=== PATIENT | female | born 1985 | race Caucasian/White ===

== ENCOUNTER 2017-05-11 23:08 | Emergency (ER) | payer MEDICARE, MEDICAID ==
[~2017-05-11] VITALS: Ht 160 cm; Wt 54.4 kg
[2017-05-11] MEDS ORDERED: LORazepam 0.5 MG TAB PO ONE (23:45)
[2017-05-12 01:44] LABS: Urine Pregnacy Test Negative (Negative)
[2017-05-12 01:54] LABS: Alcohol, Urine < 3.0 mg/dL (0-5); Amphetamine Screen, Urine NEGATIVE (NEGATIVE); Barbiturate Scree,Urine NEGATIVE (NEGATIVE); Benzodiazephine Screen, Urine NEGATIVE (NEGATIVE); Cannabinoid Screen, Urine NEGATIVE (NEGATIVE); Cocaine Screen, Urine NEGATIVE (NEGATIVE); Opiate Scree,Urine NEGATIVE (NEGATIVE); Phencyclidine Screen, Urine NEGATIVE (NEGATIVE)
[2017-05-12 05:02] VITALS: BP 132/76
== END 2017-05-12 07:25 | disposition home or self-care (01) ==
LOC: EDBD 23:08 → ER 23:14
DX: F41.9 Anxiety disorder, unspecified (principal); R06.02 Shortness of breath; J45.909 Unspecified asthma, uncomplicated; F17.210 Nicotine dependence, cigarettes, uncomplicated; Z88.1 Allergy status to other antibiotic agents; Z88.8 Allergy status to other drugs, medicaments and biological substances
CPT/HCPCS: 80307; 81025; 82962

== ENCOUNTER 2017-07-11 14:18 | Observation (INO) | payer MEDICARE, MEDICAID ==
[~2017-07-11] VITALS: Ht 165.1 cm; Wt 63.5 kg
[2017-07-11 14:44] LABS: Urine Pregnacy Test Negative (Negative)
[2017-07-11 14:54] LABS: Urine Bacteria FEW /hpf (None Seen); Urine Blood Negative /uL (Negative); Urine Specific Gravity 1.004 (1.001-1.035); Urine WBC <1 /hpf (0 - 5)
[2017-07-11 15:27] LABS: Alcohol, Urine < 3.0 mg/dL (0-5); Amphetamine Screen, Urine NEGATIVE (NEGATIVE); Barbiturate Scree,Urine NEGATIVE (NEGATIVE); Benzodiazephine Screen, Urine NEGATIVE (NEGATIVE); Cannabinoid Screen, Urine NEGATIVE (NEGATIVE); Cocaine Screen, Urine NEGATIVE (NEGATIVE); Opiate Scree,Urine NEGATIVE (NEGATIVE); Phencyclidine Screen, Urine NEGATIVE (NEGATIVE)
[2017-07-11 19:50] VITALS: BP 107/59
[2017-07-11] MEDS ORDERED: ASPirin 81 mg TAB PO ONE (20:00)
[2017-07-11] MEDS ORDERED: LORazepam 0.5 MG TAB PO ONE (20:00)
[2017-07-11 20:28] LABS: Basophils # (auto) 0.1 uL; Basophils % (auto) 0.9 % (0.0-2.0); Eosinophils # (auto) 0.1 uL; Eosinophils % (auto) 1.1 % (0.0-7.0); Hematocrit 40.5 % (36.0-46.0); Hemoglobin 13.4 g/dL (12.2-16.2); Lymphocytes # (auto) 2.8 uL; Lymphocytes % (auto) 34.4 % (10.0-50.0); Mean Corpuscular Hemoglobin 32.2 pg (28.0-32.0); Mean Corpuscular Hgb Conc. 33.1 g/dL (32.0-36.0); Mean Corpuscular Volume 97.3 fL (80.0-100.0); Monocytes # (auto) 0.5 uL; Monocytes % (auto) 5.8 % (0.0-12.0); Neutrophils # (auto) 4.7 uL; Neutrophils % (auto) 57.8 % (37.0-80.0); Nucleated Red Blood Cells % 0.1 %; Platelet Count (auto) 334 10^3/uL (140-450); Red Blood Cells 4.16 10^6/uL (4.0-5.20); Red Cell Distribution Width 13.8 % (11.8-14.3); White Blood Cell 8.2 10^3/uL (4.4-10.8)
[2017-07-11 20:48] LABS: Albumin 4.1 g/dL (3.4-5.0); BUN/Creatinine Ratio 14.7; Calcium 8.3 mg/dL (8.5-10.1); Magnesium 2.1 mg/dL (1.6-2.6); Potassium 3.8 mmol/L (3.5-5.1)
[2017-07-11 20:51] LABS: Bilirubin, Total 0.2 mg/dL (0.2-1.0); Total Protein 7.3 g/dL (6.4-8.2)
== END 2017-07-11 21:35 | disposition home or self-care (01) | DRG 313 ==
LOC: EDUNIT# 14:18 → ER 14:18 → EDBD 14:18 → OVERFLOW 19:14 → ER 21:35
PROVIDERS: ADMIT Emergency Medicine; ATTEND Emergency Medicine
DX: R07.89 Other chest pain (principal); E03.9 Hypothyroidism, unspecified; E78.5 Hyperlipidemia, unspecified; J45.909 Unspecified asthma, uncomplicated; F41.9 Anxiety disorder, unspecified; F17.210 Nicotine dependence, cigarettes, uncomplicated; Z88.1 Allergy status to other antibiotic agents
CPT/HCPCS: 36415; 71046; 80053; 80307; 81001; 81025; 83735; 83880; 84443; 84484; 85025; 85379; 85610; 85730; 93005; 99285; G0378

== ENCOUNTER 2017-11-01 23:13 | Emergency (ER) | payer MEDICAID, MEDICARE ==
[~2017-11-01] VITALS: Ht 165.1 cm; Wt 54.4 kg
[2017-11-01] MEDS ORDERED: LORazepam 0.5 MG TAB ONE (23:41)
[2017-11-02] MEDS ORDERED: LORazepam 0.5 MG TAB PO ONE ×2 (00:15→10:00)
[2017-11-02 00:38] LABS: Basophils # (auto) 0.1 uL; Basophils % (auto) 0.5 % (0.0-2.0); Eosinophils # (auto) 0.1 uL; Eosinophils % (auto) 0.6 % (0.0-7.0); Hematocrit 40.9 % (36.0-46.0); Hemoglobin 13.7 g/dL (12.2-16.2); Lymphocytes # (auto) 2.8 uL; Mean Corpuscular Hemoglobin 30.8 pg (28.0-32.0); Mean Corpuscular Hgb Conc. 33.5 g/dL (32.0-36.0); Mean Corpuscular Volume 92.1 fL (80.0-100.0); Monocytes # (auto) 0.6 uL; Monocytes % (auto) 6.3 % (0.0-12.0); Neutrophils # (auto) 6.2 uL; Neutrophils % (auto) 63.6 % (37.0-80.0); Platelet Count (auto) 385 10^3/uL (140-450); Red Blood Cells 4.44 10^6/uL (4.0-5.20); Red Cell Distribution Width 14.3 % (11.8-14.3); White Blood Cell 9.8 10^3/uL (4.4-10.8)
[2017-11-02 01:02] LABS: Albumin 3.9 g/dL (3.4-5.0); Bilirubin, Total 0.8 mg/dL (0.2-1.0); Calcium 8.4 mg/dL (8.5-10.1); Potassium 3.5 mmol/L (3.5-5.1); Total Protein 7.4 g/dL (6.4-8.2)
[2017-11-02 04:10] LABS: Urine Bacteria NONE SEEN /hpf (None Seen); Urine Blood Negative /uL (Negative); Urine Mucus FEW (None Seen); Urine Specific Gravity 1.042 (1.001-1.035); Urine WBC 4 /hpf (0 - 5)
[2017-11-02 04:11] LABS: Urine Pregnacy Test Negative (Negative)
[2017-11-02 04:28] LABS: Alcohol, Urine < 3.0 mg/dL (0-5); Amphetamine Screen, Urine POSITIVE (NEGATIVE); Barbiturate Scree,Urine NEGATIVE (NEGATIVE); Benzodiazephine Screen, Urine NEGATIVE (NEGATIVE); Cannabinoid Screen, Urine NEGATIVE (NEGATIVE); Cocaine Screen, Urine NEGATIVE (NEGATIVE); Opiate Scree,Urine NEGATIVE (NEGATIVE); Phencyclidine Screen, Urine NEGATIVE (NEGATIVE)
[2017-11-02 09:30] VITALS: BP 131/78
== END 2017-11-02 10:34 | disposition home or self-care (01) ==
LOC: EDUNIT# 23:13 → ER 23:18
DX: F41.9 Anxiety disorder, unspecified (principal); J45.909 Unspecified asthma, uncomplicated; E78.5 Hyperlipidemia, unspecified; F17.210 Nicotine dependence, cigarettes, uncomplicated
CPT/HCPCS: 36415; 80053; 80307; 81001; 81025; 85025